=== PATIENT | female | born 1955 | race Caucasian/White ===

== ENCOUNTER 2018-09-11 07:59 | Day surgery (SDC) | payer OTHER ==
[2018-09-08 08:33] VITALS: BMI 30.1
--- NOTE | 2018-09-09 02:54 | HP ---
REASON FOR ADMISSION: Pacemaker generator change. BRIEF CLINICAL HISTORY: This is a 62-year-old female with past medical history significant for hypertension, hyperlipidemia, long QT syndrome, status post pacemaker 10 years ago whose battery interrogation done, found to be end of the life. So patient is scheduled for elective dual chamber pacemaker generator change. Patient denies chest pain, shortness of breath or any palpitation. PAST MEDICAL HISTORY: Significant for hypertension, hyperlipidemia. SOCIAL HISTORY: Denies smoking. Denies any history of alcohol abuse. PAST SURGICAL HISTORY: History of pacemaker secondary to long QT interval [address], [facility]. CURRENT MEDICATIONS: Patient is taking Xyzal 5 mg daily, metoprolol succinate 50 mg daily, atorvastatin 20 mg daily. ALLERGIES: NO KNOWN DRUG ALLERGY. PHYSICAL EXAMINATION: VITAL SIGNS: As follows, height of the patient 5 feet 3 inches, weight of the patient 170 pounds, body mass index 30 kg/sq. m. Rest of examination, temperature afebrile, heart rate 70, blood pressure 130/80. HEENT: PERRLA. Extraocular muscles intact. NECK: Supple. No carotid bruits or thyromegaly. CHEST: Clear to auscultation. HEART: S1 and S2, regular. ABDOMEN: Soft. EXTREMITIES: Clubbing and cyanosis negative. IMPRESSION AND PLAN: A 62-year-old female with past medical history significant for long QT interval hypertension and hyperlipidemia, admitted electively for a pacemaker generator change. We will follow. Follow the blood workup is okay, we will proceed for pacemaker generator change. Thank you, Dr. Burgos, for providing us the opportunity in taking care of the patient, David. Gregory Deng MD cc: Dr. Burgos
[2018-09-11 08:43] LABS: BASO # 0.01 K/mm3 (0.0-2.0); BASO % 0.1 % (0.0-3.0); EOS # 0.4 (0.0-0.7); GRAN # 3.54 (1.4-6.5); GRAN % 48.9 % (50.0-68.0); HEMOGLOBIN 14.2 g/dL (12.0-16.0); LYMPH # 2.8 (1.2-3.4); LYMPH % 38.6 % (22.0-35.0); MEAN CELL VOLUME 90.5 fl (80.0-105.0); MEAN CORPUSCULAR HEMOGLOBIN 30.6 pg (25.0-35.0); MEAN CORPUSCULAR HGB CONC 33.8 g/dl (31.0-37.0); MONO # 0.5 (0.1-0.6); MONO % 7.4 % (1.0-6.0); RBC 4.64 10^6/uL (3.5-6.1); RED CELL DISTRIBUTION WIDTH 13.3 % (11.5-14.5); WHITE BLOOD COUNT 7.3 10^3/ul (4.5-11.0)
[2018-09-11 08:47] LABS: INR 1.06; PARTIAL THROMBOPLASTIN TIME 30.4 Seconds (25.1-36.5); PROTHROMBIN TIME 12.2 SECONDS (9.4-12.5)
[2018-09-11 08:48] LABS: BLOOD UREA NITROGEN 19 mg/dL (7-21); CALCIUM 9.9 mg/dL (8.4-10.5); GFR NON-AFRICAN AMERICAN > 60; HDL CHOLESTEROL 45 mg/dL (29-60)
[2018-09-11 09:00] LABS: LDL CHOLESTEROL 90 mg/dL (0-129)
[2018-09-11] MEDS ORDERED: Lidocaine 2% PF (10 ml) Amp ONE (09:14)
[2018-09-11] MEDS ORDERED: Midazolam 2 MG/2 ML VIAL ONE ×2 (09:50→10:09)
[2018-09-11] MEDS ORDERED: Morphine 2 mg/ml ISec ONE (10:11)
[2018-09-11] MEDS ORDERED: Sodium Chloride 0.9% 1,000 ML IV SCH (11:15)
[2018-09-11 11:22] VITALS: PULSE 60
--- NOTE | 2018-09-11 11:29 | CPOSTOP ---
DATE: 09/11/2018 CARDIOVASCULAR LAB POST PROCEDURE NOTE PHYSICIAN: Gregory Deng MD. BOILER ASSISTANT OPERATOR: Elder, refinery technician. TYPE OF ANESTHESIA: Moderate conscious sedation. Total 2 mg of morphine, 3 mg of Versed, 100 of fentanyl given periodically. Started 1 mg of Versed, 50 of fentanyl. PRE-PROCEDURE DIAGNOSIS: End of life of pacemaker. PROCEDURE PERFORMED: Pacemaker generator change. FINDINGS: End of the life of pacemaker. FINAL DIAGNOSIS: End of pacemaker, [facility]. POST PROCEDURE CONDITION: Post procedure, the patient's condition is stable, good. VASCULAR ACCESS SITE: Left subclavian, left side of the chest. CLOSURE DEVICE: Dermabond applied. TOTAL RADIATION DOSE: 78.58 milligray unit. TOTAL FLUORO TIME: 0.3 minutes. Gregory Deng MD
[2018-09-11 11:59] VITALS: BP 100/52; RESP 20; TEMP 97.6; O2SAT 96
--- NOTE | 2018-09-11 14:21 | CARD ---
APPROVED REPORT Date of service: 09/11/2018 HISTORY The Patient is a 62 year-old female with a history of Long QT , S/p PPM and End of Life of PPM PROCEDURES Replacement of Dual chamber pacemakerr INDICATIONS End of life of PPM CONSCIOUS SEDATION AGENTS Versed Fentanyl IMPLANTED DEVICES Assurity MRI safe from [facility] EXPLANTED DEVICES Zepher from [facility] [employer] OPERATIVE NOTE The patient was brought to the Cardiac Catheterization Laboratory in a fasting state and was prepped and draped in a sterile manner. The left subclavian region was infiltrated with 2% Lidocaine subcutaneously. A transverse incision was made in the left subclavian area. The subcutaneous pocket was opened and the pulse generator was removed. The ventricular lead wire was exposed via blunt dissection. The atrial and ventricular leads were interogated and found to have acceptable parameters as follows; THE ATRIAL ELECTRODE PARAMETERS P Wave..2.5 Threshold...0.5 Resistance ... 378 THE VENTRICULAR ELECTRODE PARAMETERS R WAVE 13.3 THRESHOLD0.8 RESISTANCE 427 setscrews firmly tightened to insure adequate contact and stability. The lead and pulse generator were placed into the subcutaneous pocket. Sharp and sponge counts were confirmed to be correct. At this time the pocket was closed subcutaneously with a Vicryl 2.0 and the skin was closed with a Vicryl 4.0 .The operative site was dressed in sterile fashion. The patient tolerated the procedure well and was transferred tothe floor in stable condition. COMPLICATIONS The patient tolerated the procedure well and there were no complications associated with the procedure. CONCLUSION Successful PPM Gen change DDDR Assurity MRI ( [facility]). Arrangement has been made for f/u in Pacemaker clinic. CC; dr. Deng
--- NOTE | 2018-09-11 15:10 | CARD ---
APPROVED REPORT Date of service: 09/11/2018 EKG Measurement Heart [id number] <Conclusion> Electronic atrial pacemaker
== END 2018-09-11 13:45 | disposition home or self-care (01) ==
LOC: SDS 07:59 → CATH 07:59
PROVIDERS: ATTEND Internal Medicine Cardiovascular Disease
DX: Z45.010 Encounter for checking and testing of cardiac pacemaker pulse generator [battery] (principal); I45.81 Long QT syndrome; I10 Essential (primary) hypertension; E78.5 Hyperlipidemia, unspecified
CPT/HCPCS: 33228; 36415; 80048; 80061; 85025; 85610; 85730; 86850; 86900; 93005; 99152; 99153; C1785; J0690; J2250; J2270; J3010; J7030